=== PATIENT | female | born 1990 | race Caucasian/White ===

== ENCOUNTER 2024-06-05 06:56 | Inpatient (IN) | payer MEDICAID ==
[~2024-06-05 06:56] MED LIST: Famotidine 20 MG/2 ML SDV IVPUSH ONE; Famotidine 20 MG/2 ML SDV IVPUSH SCH
[2024-06-05] MEDS ORDERED: Acetaminophen 325 MG Tab PO SCH (07:00)
[2024-06-05] MEDS ORDERED: Sodium Chloride 0.9% 10 ML Syringe FLUSH PRN (07:48)
[2024-06-05] MEDS ORDERED: Dexamethasone 4 MG/ML SDV ONE ×3 (08:19→08:35)
[2024-06-05 08:27] LABS: BASOPHILS PERCENT AUTO 0.2 % (0.0-1.0); EOSINOPHILS ABSOLUTE AUTO 0.2 K/mm3 (0.0-0.4); EOSINOPHILS PERCENT AUTO 1.4 % (0.0-6.0); HEMOGLOBIN 11.7 gm/dl (12.0-16.0); IMMATURE GRAN ABSOLUTE AUTO 0.15 K/mm3 (0.00-0.05); IMMATURE GRAN PERCENT AUTO 1.3 % (0.0-0.4); LYMPHOCYTES ABSOLUTE AUTO 2.6 K/mm3 (1.0-4.8); LYMPHOCYTES PERCENT AUTO 22.5 % (24.0-44.0); MEAN CORPUSCULAR HEMOGLOBIN 31.6 pg (28.0-32.0); MEAN CORPUSCULAR HGB CONC 34.4 g/dl (32.0-36.0); MEAN CORPUSCULAR VOLUME 91.9 fl (83.0-99.0); MEAN PLATELET VOLUME 9.1 fl (9.4-12.3); MONOCYTES ABSOLUTE AUTO 0.6 K/mm3 (0.0-0.8); MONOCYTES PERCENT AUTO 5.2 % (0.0-8.0); NEUTROPHILS PERCENT AUTO 69.4 % (41.0-71.0); PLATELET COUNT,PLT 183 K/mm3 (150-400); WHITE BLOOD CELL COUNT,WBC 11.52 K/mm3 (3.9-11.3)
[2024-06-05] MEDS ORDERED: Ketorolac 30 MG/ML SDV ONE (08:35)
[2024-06-05] MEDS ORDERED: Morphine PF 10 MG/10 ML SDV ONE (08:35)
[2024-06-05] MEDS ORDERED: ePHEDrine 50 MG/ML SDV ONE (08:35)
[2024-06-05] MEDS ORDERED: Ondansetron 4 MG/2 ML SDV ONE (08:35)
[2024-06-05] MEDS: Citric Acid/Sodium Citrate Solution 30 ML Cup PO ONE (08:36)
[2024-06-05] MEDS: Acetaminophen 325 MG Tab PO ONE (08:36)
[2024-06-05] MEDS: Famotidine 20 MG/2 ML SDV IVPUSH ONE (08:37)
[2024-06-05] MEDS: Metoclopramide 10 MG/2 ML SDV IVPUSH ONE (08:37)
[2024-06-05] MEDS: Lactated Ringers 1,000 ML IV SCH (08:38)
[2024-06-05] MEDS: Oxytocin/0.9 % Sodium Chloride 30 UNIT/500 ML BAG IV SCH (08:48)
[2024-06-05] MEDS ORDERED: ceFAZolin 2 GM Vial ONE (09:46)
[2024-06-05] MEDS ORDERED: HYDROmorphone 0.5 MG/0.5 ML Syringe IVPUSH PRN (10:26)
[2024-06-05] MEDS ORDERED: fentaNYL 100 MCG/2 ML SDV IVPUSH PRN ×2 (10:26→10:27)
[2024-06-05] MEDS ORDERED: Ondansetron 4 MG/2 ML SDV IVPUSH PRN ×2 (10:26→10:27)
[2024-06-05] MEDS ORDERED: Meperidine 50 MG/ML Vial IVPUSH PRN (10:27)
[2024-06-05] MEDS ORDERED: diphenhydrAMINE 50 MG/ML SDV IVPUSH PRN ×2 (10:27→10:46)
[2024-06-05] MEDS ORDERED: ePHEDrine 50 MG/ML SDV IVPUSH PRN (10:46)
[2024-06-05] MEDS ORDERED: Acetaminophen/oxyCODONE 325-5 MG Tab PO PRN ×2 (10:46)
[2024-06-05] MEDS ORDERED: Naloxone 0.4 MG/ML SDV IVPUSH PRN (10:46)
[2024-06-05] MEDS: Bupivacaine 0.5% 30 ML SDV ONE (11:02)
[2024-06-05] MEDS: Sodium Chloride 0.9% 10 ML Syringe FLUSH SCH (11:45)
[2024-06-05] MEDS: ceFAZolin 2 GM in Sodium Chloride 0.9% 50 ML IV ONE (11:46)
[2024-06-05] MEDS: Dextrose 5%-Lactated Ringers 1,000 ML IV SCH (13:37)
[2024-06-05] MEDS: Ketorolac 30 MG/ML SDV IVPUSH SCH (17:12)
[2024-06-06 06:50] LABS: BASOPHILS PERCENT AUTO 0.2 % (0.0-1.0); EOSINOPHILS ABSOLUTE AUTO 0.1 K/mm3 (0.0-0.4); EOSINOPHILS PERCENT AUTO 0.5 % (0.0-6.0); HEMATOCRIT 28.6 % (37.0-47.0); IMMATURE GRAN ABSOLUTE AUTO 0.14 K/mm3 (0.00-0.05); LYMPHOCYTES ABSOLUTE AUTO 3.1 K/mm3 (1.0-4.8); LYMPHOCYTES PERCENT AUTO 21.3 % (24.0-44.0); MEAN CORPUSCULAR HEMOGLOBIN 32.2 pg (28.0-32.0); MEAN CORPUSCULAR HGB CONC 34.3 g/dl (32.0-36.0); MEAN CORPUSCULAR VOLUME 94.1 fl (83.0-99.0); MEAN PLATELET VOLUME 9.5 fl (9.4-12.3); MONOCYTES ABSOLUTE AUTO 0.9 K/mm3 (0.0-0.8); MONOCYTES PERCENT AUTO 6.4 % (0.0-8.0); NEUTROPHILS ABSOLUTE AUTO 10.4 K/mm3 (1.8-7.7); NEUTROPHILS PERCENT AUTO 70.6 % (41.0-71.0); PLATELET COUNT,PLT 178 K/mm3 (150-400); RED BLOOD CELL COUNT 3.04 M/mm3 (4.10-5.30)
[2024-06-06 06:57] LABS: HEMOGLOBIN 9.8 gm/dl (12.0-16.0)
[2024-06-06] MEDS: Ketorolac 30 MG/ML SDV IVPUSH SCH (08:09)
[2024-06-06] MEDS: Ibuprofen 600 MG Tab PO SCH (15:04)
[2024-06-06] MEDS: Acetaminophen 325 MG Tab PO PRN (18:06)
[2024-06-06] MEDS: Simethicone 80 MG Tab.Chew PO PRN (22:06)
[2024-06-07] MEDS: Docusate Sodium 100 MG Cap PO PRN (05:48)
== END 2024-06-07 10:45 | disposition home or self-care (01) | DRG 788 ==
LOC: JD.OB 06:56 → OBSVTOIN 06:56
PROVIDERS: ADMIT Obstetrics & Gynecology; ATTEND Obstetrics & Gynecology
PROC: 10D00Z1 Extraction of Products of Conception, Low, Open Approach (ICD-10-PCS; principal; 2024-06-05 10:00)
DX: O34.211 Maternal care for low transverse scar from previous cesarean delivery (principal); Z3A.39 39 weeks gestation of pregnancy; Z37.0 Single live birth; O99.02 Anemia complicating childbirth
CPT/HCPCS: 01961; 36415; 59025; 85025; 86592; 86850; 86900; 86901; A9270-GY; J0665; J0690; J1100; J1885; J2274; J2405; J2765; J3490; J7120; J7121; J7999